=== PATIENT | female | born 1940 | race Caucasian/White ===

== ENCOUNTER 2018-06-16 02:26 | Inpatient (IN) | payer MEDICARE, BC ==
[~2018-06-16] VITALS: Ht 170.2 cm; Wt 57.7 kg
[~2018-06-16 02:26] MED LIST: AMBIEN5 MG ORAL; NKM
--- NOTE | 2018-06-16 02:39 | Emergency Room Report ---
History of Present Illness General Chief Complaint: Chest Pain Source: Patient Present Illness HPI This is a 77-year-old female with a history of asthma. She presents with chief complaint of chest pain. It woke her up from sleep. She complaining of chest pressure and heaviness to the mid chest area. Radiating to both shoulders and neck. Said that she felt short of breath and weak. Also was sweaty. This occurred about 40 minutes ago. She drove herself here. The bit better now. No nausea no vomiting. No fever or chills. Never had this problem before. Denies any recent illness. Said that she had a stress test done over one to 2 years ago. Allergies: Coded Allergies: CODEINE (Verified Allergy, Unknown, 12/31/14) Patient History Past Medical History: see triage record, old chart reviewed, asthma Past Surgical History: none Pertinent Family History: none Social History: Denies: smoking Now: No Immunizations: other Reviewed Nursing Documentation: PMH: Agreed; PSxH: Agreed Nursing Documentation-PMH Past Medical History: No Stated History Review of Systems Eye: Denies: eye pain, blurred vision ENT: Denies: ear pain, nose congestion, throat swelling Respiratory: Denies: cough, shortness of breath Cardiovascular: Reports: chest pain; Denies: palpitations Gastrointestinal: Denies: abdominal pain, diarrhea, nausea, vomiting Musculoskeletal: Denies: back pain, joint pain Skin: Denies: rash Neurological: Denies: headache, numbness Endocrine: Denies: increased thirst, increased urine Hematologic/Lymphatic: Denies: easy bruising All Other Systems: negative except mentioned in HPI Physical Exam Vital Signs Date Time Temp Pulse Resp B/P (MAP) Pulse Ox O2 Delivery O2 Flow Rate FiO2 06/16/18 02:18 98.4 68 16 155/78 100 Room Air vitals with high blood pressure Sp02 EP Interpretation: reviewed, normal General Appearance: well appearing, no apparent distress, alert Head: normocephalic, atraumatic Eyes: bilateral eye PERRL, bilateral eye EOMI ENT: hearing grossly normal, normal pharynx Neck: full range of motion, supple, no meningismus Respiratory: chest non-tender, lungs clear, normal breath sounds Cardiovascular #1: regular rate, rhythm, no murmur Gastrointestinal: normal bowel sounds, non tender, no mass, no organomegaly, no bruit, non-distended Musculoskeletal: back normal, gait/station normal, normal range of motion Psychiatric: mood/affect normal Skin: warm/dry Medical Decision Making Diagnostic Impression: Primary Impression: Chest pain Qualified Codes: R07.9 - Chest pain, unspecified ER Course Patient present with chest pain. Symptom only started less than an hour prior to arrival. First set of troponin negative. EKG normal. Because of her age, will race and telemetry observation for further workup and chest pain/GA rule out. I contacted Dr. Majano to place pt in Tele Obsv. EKG Diagnostic Results Rate: normal Rhythm: NSR ST Segments: no acute changes ASA given to the pt in ED: Yes Rhythm Strip Diag. Results EP Interpretation: yes Rate: 62 Rhythm: NSR, no PVC's, no ectopy Chest X-Ray Diagnostic Results Chest X-Ray Diagnostic Results : Chest X-Ray Ordered: Yes # of Views/Limited/Complete: 1 View Indication: Chest Pain EP Interpretation: Yes Interpretation: no consolidation, no effusion, no pneumothorax, no acute cardiopulmonary disease Impression: No acute disease Electronically Signed by: Ever Faustin MD Last Vital Signs Date Time Temp Pulse Resp B/P (MAP) Pulse Ox O2 Delivery O2 Flow Rate FiO2 06/16/18 02:18 98.4 68 16 155/78 100 Room Air Status: improved Disposition: PLACE IN OBSERVATION Condition: Serious Ever Faustin MD June 16, 2018 02:39
[2018-06-16] MEDS ORDERED: Aspirin Baby 81mg ORAL ONE (02:45)
[2018-06-16] MEDS ORDERED: Nitroglycerin Subl 0.4mg tab SL PRN (02:45)
[2018-06-16 02:53] VITALS: BP 155/78
[2018-06-16 03:04] LABS: APPEARANCE,URINE CLEAR; BASOPHILS % (AUTO) 1.9 % (0.0-2.0); BILIRUBIN, URINE NEGATIVE (NEGATIVE); COLOR,URINE PALE YELLOW; EOSINOPHILS % (AUTO) 2.1 % (0.0-3.0); GLUCOSE, URINE (UA) NEGATIVE (NEGATIVE); HEMATOCRIT 44.5 % (37.0-47.0); HEMOGLOBIN 14.5 G/DL (12.0-16.0); KETONES,URINE NEGATIVE (NEGATIVE); LEUKOCYTE ESTERASE ,URINE 1+ (NEGATIVE); LYMPHOCYTES % (AUTO) 32.9 % (20.0-45.0); MEAN CORPUSCULAR VOLUME 93 FL (80-99); MONOCYTES % (AUTO) 8.4 % (1.0-10.0); NEUTROPHILS % (AUTO) 54.8 % (45.0-75.0); NITRITE,URINE NEGATIVE (NEGATIVE); PH,URINE 7 (4.5-8.0); PLATELET COUNT 277 K/UL (150-450); PROTEIN,URINE NEGATIVE (NEGATIVE); RED BLOOD COUNT 4.81 M/UL (4.20-5.40); UROBILINOGEN,URINE NORMAL MG/DL (0.0-1.0); WHITE BLOOD COUNT 5.3 K/UL (4.8-10.8)
[2018-06-16 03:17] LABS: ANION GAP 6 mmol/L (5-15); BLOOD UREA NITROGEN 21 mg/dL (7-18); CALCIUM 9.6 MG/DL (8.5-10.1); CARBON DIOXIDE 31 MMOL/L (21-32); CHLORIDE 104 MMOL/L (98-107); CREATININE 0.8 MG/DL (0.55-1.30); POTASSIUM 3.5 MMOL/L (3.5-5.1); SODIUM 141 MMOL/L (136-145)
[2018-06-16 03:25] LABS: ALANINE AMINOTRANSFERASE 27 U/L (12-78); ALBUMIN 3.7 G/DL (3.4-5.0); ALKALINE PHOSPHATASE 84 U/L (46-116); ASPARTATE AMINO TRANSFERASE 27 U/L (15-37); BILIRUBIN,TOTAL 0.3 MG/DL (0.2-1.0); CKMB 2.6 NG/ML (0.0-3.6); CREATINE KINASE 291 U/L (26-308)
[2018-06-16 04:56] VITALS: BP 119/74
--- NOTE | 2018-06-16 06:42 | Cardiac Electrophysiology PN ---
Subjective Subjective [id number] Objective Last 24 Hour Vital Signs Date Time Temp Pulse Resp B/P (MAP) Pulse Ox O2 Delivery O2 Flow Rate FiO2 06/16/18 05:27 Room Air 06/16/18 04:56 98.3 74 17 119/74 100 Room Air 06/16/18 04:56 98.3 74 17 119/74 100 Room Air 06/16/18 02:53 68 16 Room Air 06/16/18 02:53 98.4 78 16 155/78 100 Room Air 06/16/18 02:46 155/78 06/16/18 02:18 98.4 68 16 155/78 100 Room Air Laboratory Tests Test 06/16/18 02:40 White Blood Count 5.3 K/UL (4.8-10.8) Red Blood Count 4.81 M/UL (4.20-5.40) Hemoglobin 14.5 G/DL (12.0-16.0) Hematocrit 44.5 % (37.0-47.0) Mean Corpuscular Volume 93 FL (80-99) Mean Corpuscular Hemoglobin 30.1 PG (27.0-31.0) Mean Corpuscular Hemoglobin Concent 32.5 G/DL (32.0-36.0) Red Cell Distribution Width 13.0 % (11.6-14.8) Platelet Count 277 K/UL (150-450) Mean Platelet Volume 6.4 FL (6.5-10.1) L Neutrophils (%) (Auto) 54.8 % (45.0-75.0) Lymphocytes (%) (Auto) 32.9 % (20.0-45.0) Monocytes (%) (Auto) 8.4 % (1.0-10.0) Eosinophils (%) (Auto) 2.1 % (0.0-3.0) Basophils (%) (Auto) 1.9 % (0.0-2.0) Urine Color Pale yellow Urine Appearance Clear Urine pH 7 (4.5-8.0) Urine Specific [place] 1.005 (1.005-1.035) Urine Protein Negative (NEGATIVE) Urine Glucose (UA) Negative (NEGATIVE) Urine Ketones Negative (NEGATIVE) Urine Blood Negative (NEGATIVE) Urine Nitrite Negative (NEGATIVE) Urine Bilirubin Negative (NEGATIVE) Urine Urobilinogen Normal MG/DL (0.0-1.0) Urine Leukocyte Esterase 1+ (NEGATIVE) H Urine RBC 0-2 /HPF (0 - 2) Urine WBC 0-2 /HPF (0 - 2) Urine Squamous Epithelial Cells Occasional /LPF Urine Bacteria Occasional /HPF (NONE) Sodium Level 141 MMOL/L (136-145) Potassium Level 3.5 MMOL/L (3.5-5.1) Chloride Level 104 MMOL/L (98-107) Carbon Dioxide Level 31 MMOL/L (21-32) Anion Gap 6 mmol/L (5-15) Blood Urea Nitrogen 21 mg/dL (7-18) H Creatinine 0.8 MG/DL (0.55-1.30) Estimat Glomerular Filtration Rate mL/min (>60) Glucose Level 124 MG/DL (74-106) H Calcium Level 9.6 MG/DL (8.5-10.1) Total Bilirubin 0.3 MG/DL (0.2-1.0) Aspartate Amino Transf (AST/SGOT) 27 U/L (15-37) Alanine Aminotransferase (ALT/SGPT) 27 U/L (12-78) Alkaline Phosphatase 84 U/L (46-116) Total Creatine Kinase 291 U/L (26-308) Creatine Kinase MB 2.6 NG/ML (0.0-3.6) Creatine Kinase MB Relative Index 0.8 Troponin I 0.000 ng/mL (0.000-0.056) Total Protein 7.3 G/DL (6.4-8.2) Albumin 3.7 G/DL (3.4-5.0) Globulin 3.6 g/dL Albumin/Globulin Ratio 1.0 (1.0-2.7) Travis Jacobs MD June 16, 2018 06:42
[2018-06-16] MEDS ORDERED: Lexiscan 0.4mg/5ml syringe IV SCH (07:00)
[2018-06-16 08:00] VITALS: BP 124/72
[2018-06-16] MEDS ORDERED: Lexiscan 0.4mg/5ml syringe IV PRN (08:00)
[2018-06-16] MEDS: Aspirin Baby 81mg ORAL SCH (09:27)
--- NOTE | 2018-06-16 11:36 | Diagnostic Imaging Report ---
Indication: Chest pain Technique: One view of the chest Comparison: 12/31/2014 Findings: Lungs and pleural spaces are clear. Heart size is normal. No significant interim change Impression: No acute process
[2018-06-16 12:00] VITALS: BP 122/67
--- NOTE | 2018-06-16 14:54 | Diagnostic Imaging Report ---
APPROVED REPORT CPT Code: 34410 Present Symptoms Comments: Pain BILATERAL: Imaging reveals a patent deep venous system bilaterally. There is no evidence of thrombus within the common femoral, superficial femoral, popliteal or tibial segments. The greater saphenous veins are within normal limits. Doppler indicates normal spontaneous flow within these segments.
--- NOTE | 2018-06-16 15:01 | Cardiology Report ---
APPROVED REPORT EXAM: Two-dimensional and M-mode echocardiogram with Doppler and color Doppler. INDICATION Chest Pain M-Mode DIMENSIONS IVSd1.3 (0.7-1.1cm)Left Atrium (MM)1.9 (1.6-4.0cm) LVDd4.8 (3.5-5.6cm)Aortic Root3.6 (2.0-3.7cm) PWd0.7 (0.7-1.1cm)Aortic Cusp Exc.1.8 (1.5-2.0cm) IVSs1.4 cm LVDs3.0 (2.5-4.0cm) PWs1.2 cm Technically difficult study due to poor acoustical windows. Normal left ventricular chamber size, systolic function and wall motion to extent visualized. Left ventricular ejection fraction estimated to be 55-60 %. Borderline mild left ventricular hypertrophy. No evidence of pericardial effusion. All other cardiac chamber sizes are within normal limits. Focal aortic valve sclerosis with adequate cusp excursion. Thickened mitral valve leaflets with normal excursion. Mitral annulus and aortic root calcification. Pulmonic valve not well visualized. Normal tricuspid valve structure. IVC at normal size with slight physiologic collapse. A color flow and spectral Doppler study was performed and revealed: Trace mitral regurgitation. Mitral diastolic velocities suggest reduced left ventricular relaxation c/w mild LV diastolic dysfunction (Grade I). Trace to mild tricuspid regurgitation. Tricuspid systolic velocities suggests peak right ventricular systolic pressure of 25 mmHg.
[2018-06-16 16:00] VITALS: BP 120/54
--- NOTE | 2018-06-16 16:27 | Diagnostic Imaging Report ---
Indications: Chest pain Technique: Single day single isotope protocol utilized. Initially, resting images obtained using IV administration 10 millicuries 99M technetium Myoview. Subsequently, patient underwent Dobutamine stress testing. See cardiology report for details. During adenosine infusion, IV administration 30.6 mCi 99 M technetium Myoview. SPECT and planar images obtained. SPECT images gated to 8 phases of the cardiac cycle were also obtained, and reformatted into cine images for evaluation of ejection fraction. Comparison: none Findings: Presence or absence of symptoms during infusion is not described in the cardiology report. Per cardiology report, resting EKG demonstrates normal sinus rhythm. Presence or absence of ST changes is not described on the cardiology report. Cardiology report, patient achieved a peak heart rate 140 bpm, excess of the target heart rate one 23 bpm. Imaging demonstrates normal poststress perfusion, no fixed nor reversible perfusion defects. Normal cardiac chamber size. Calculated post stress ejection fraction 72% Impression: Nonischemic clinical response to pharmacologic stress, per cardiology report Nonischemic electrocardiographic response to pharmacologic stress, per cardiology report No imaging findings to suggest ischemia, at level of stress achieved. Calculated post stress ejection fraction 72%
--- NOTE | 2018-06-16 17:15 | Consultation ---
DATE OF CONSULTATION: 06/16/2018 CARDIOLOGY CONSULTATION CONSULTING PHYSICIAN: Travis Jacobs M.D. REASON FOR CONSULTATION: Chest pain. HISTORY OF PRESENT ILLNESS: The patient is a very pleasant 77-year-old lady with history of asthma and history of chest pains in the past for which she has been evaluated by Dr. Bassem Reynolds. She sees acid maker and had undergone a stress test per her in the last year that reportedly was completely normal. The patient presented to the emergency room complaining of chest pain that woke her up from sleep. It was pressure like and heaviness in the middle of the chest with radiation to both shoulders and back. The pain also radiated to her left arm. The patient was very diaphoretic. She came to the emergency room and EKG did not show any ischemic changes. First troponin was negative. Cardiology consultation was obtained for further evaluation and management. REVIEW OF SYSTEMS: Negative other than what was mentioned in history of present illness. PAST MEDICAL HISTORY: As above. FAMILY HISTORY: Noncontributory. MEDICATIONS: At home, just multivitamin. PHYSICAL EXAMINATION: VITAL SIGNS: Show blood pressure of 155/78, pulse 78, respirations 18, temperature 98.4. HEAD AND NECK: No JVD. LUNGS: Clear. CARDIOVASCULAR: Regular S1 and S2 with no gallop or murmur. ABDOMEN: Soft. EXTREMITIES: No pitting edema. LABORATORY AND DIAGNOSTIC DATA: Her EKG shows sinus rhythm with no acute ischemic changes. Labs show white count of 5.2, hemoglobin of 14.5, hematocrit 44.5, platelet count of 277,000. Sodium 141, potassium 3.5, BUN of 21, creatinine 0.8, and glucose of 124. The troponin was negative. ASSESSMENT AND PLAN: 1. Chest pain at rest. The patient states she regularly without any chest pain and the stress test last year was reportedly negative. We will completely rule out AK protocol, repeat EKG, and get an echocardiogram to evaluate for ejection fraction and wall motion abnormality and schedule the patient for a stress test. 2. History of asthma, currently stable. Thank you very much, Dr. Majano, for allowing me to participate in the care of this patient. Please do not hesitate to contact me for any questions regarding my evaluation. Travis Jacobs M.D. DR: VASILIY JOB#: [id number] CC:
[2018-06-16 20:00] VITALS: BP 118/71
[2018-06-17] VITALS: BP 121/68
[2018-06-17 04:00] VITALS: BP 95/54
[2018-06-17 08:00] VITALS: BP 123/72
[2018-06-17] MEDS: Aspirin Baby 81mg ORAL SCH (08:49)
[2018-06-17 12:00] VITALS: BP 133/55
--- NOTE | 2018-06-17 14:15 | History and Physical Report ---
DATE OF ADMISSION: 06/16/2018 HISTORY OF PRESENT ILLNESS: The patient comes in with chest pain that woke her up associated with diaphoresis and radiated to both arms. The patient has tremor every day, but however, she states recently she has been doing due to her asthma and shortness of breath. The patient has history of asthma and was admitted for the chest pain, rule out acute coronary syndrome. The patient has no history of heart disease. Denies shortness of breath . Denies wheezing. Denies cough headache. PAST MEDICAL HISTORY: Significant for asthma. PAST SURGERIES: left foot surgery. SOCIAL HISTORY: History of smoking . ALLERGIES: NSAID. MEDICATIONS: FAMILY HISTORY: Noncontributory. REVIEW OF SYSTEMS: HEENT: headaches. RESPIRATORY: Denies shortness of breath. Denies cough. CARDIOVASCULAR: Reports chest pain radiated to both arms associated with diaphoresis. GASTROINTESTINAL: Denies nausea, vomiting, or diarrhea. EXTREMITIES: Denies any significant pain. NEUROLOGIC: No change in vision or speech pattern. PHYSICAL EXAMINATION: VITAL SIGNS: Temperature is 98.3, pulse is 74, blood pressure 119/74. HEENT: PERRLA. NECK: Supple. CHEST: Clear to auscultation. CARDIOVASCULAR: Regular rate and rhythm. No murmurs or extra sounds. GASTROINTESTINAL: Soft, nontender, and nondistended. No organomegaly. EXTREMITIES: No edema. Moves all four extremities. NEUROLOGIC: Sensory is intact to light touch. LABORATORY DATA: WBC of 5.3, hemoglobin 14.5, and platelets 277. Sodium 141, potassium 3.5, BUN of 21, creatinine 0.8, glucose 124. Troponin negative. . ASSESSMENT AND PLAN: Chest pain, rule out acute coronary syndrome. The patient changes. No prior history of [place]. I have asked Dr. Ayers to see the patient to rule out for acute coronary syndrome as well as low potassium and elevated BUN. Peggy Majano M.D. DR: Abbie JOB#: [id number] CC:
--- NOTE | 2018-06-17 14:17 | Cardiology Report ---
APPROVED REPORT EKG Measurement Heart [id number] Sinus bradycardia Otherwise normal ECG
--- NOTE | 2018-06-17 15:49 | Cardiac Electrophysiology PN ---
Assessment/Plan Assessment/Plan 1. Chest pain at rest. Ruled out for ID. Echocardiogram showed Nl EF.Nuclear stress test showed no ischemia. 2. History of asthma, currently stable. DW RN OK to DC Subjective Subjective No CP or SOB. EF 72%. Stress test was done yesterday that showed no ischemia Objective Last 24 Hour Vital Signs Date Time Temp Pulse Resp B/P (MAP) Pulse Ox O2 Delivery O2 Flow Rate FiO2 06/17/18 12:00 98.1 63 16 133/55 (81) 98 06/17/18 11:35 78 06/17/18 09:00 Room Air 06/17/18 08:00 66 06/17/18 08:00 98.2 62 16 123/72 (89) 97 06/17/18 04:00 98.0 63 20 95/54 (68) 97 06/17/18 04:00 87 06/17/18 00:00 67 06/17/18 00:00 97.3 66 18 121/68 (85) 97 06/16/18 21:00 Room Air 06/16/18 20:00 98.2 67 16 118/71 (87) 97 06/16/18 20:00 68 06/16/18 16:00 98.1 87 120/54 (76) 06/16/18 16:00 73 Intake and Output 06/16/18 06/17/18 18:59 06:59 Intake Total 900 ml 900 ml Output Total 700 ml 700 ml Balance 200 ml 200 ml Intake Oral 900 ml 900 ml Output Urine Total 700 ml 700 ml # Voids 1 Laboratory Tests Test 06/16/18 19:15 06/17/18 03:00 Troponin I 0.000 ng/mL (0.000-0.056) 0.000 ng/mL (0.000-0.056) Objective HEAD AND NECK: No JVD. LUNGS: Clear. CARDIOVASCULAR: Regular S1 and S2 with no gallop or murmur. ABDOMEN: Soft. EXTREMITIES: No pitting edema. Travis Jacobs MD June 17, 2018 15:49
[2018-06-17 16:00] VITALS: BP 129/68
--- NOTE | 2018-06-17 19:27 | Physician Query ---
--------- THIS DOCUMENT IS A PERMANENT PART OF THE MEDICAL RECORD --------- PLEASE COMPLETE THE DOCUMENT BEFORE SIGNING Acct#[id number] Pt Name: JOVANI ABEBE Dear Dr. Sheikh, Peggy Date Wraparound Facilitator/CDS' Name _Paige Wraparound Facilitator/CDS Phone#: Exercise your independent professional judgment when responding to query. Questions asked do not imply particular answer is desired or expected. We greatly appreciate your clarification on this issue. Clinical Documentation States: The patient comes in with chest pain, Physical exam: CARDIOVASCULAR: Reports chest pain radiated to both arms associated with diaphoresis. Regular rate and rhythm. No murmurs or extra sounds. Cardio cons: 1. Chest pain at rest. Ruled out for AK. Echocardiogram showed Nl EF.Nuclear stress test showed no ischemia VITAL SIGNS: Temperature is 98.3, pulse is 74, blood pressure 119/74. Clinical Findings Show: EKG = ED provider reading: normal Rhythm: NSR ST Segments: no acute changes Troponin = __0.000 O2% = _98-92 ECHO = _06/17/18 EF = __70% Please document the suspected etiology of Chest Pain: a.Type: []Cardiac []Non-cardiac []Unspecified b.Etiology - cardiac [] Aortic dissection []Mitral valve prolapsed [] Acute myocardial infarction []Spasm of coronary arteries [] Coronary Artery Disease []Pericarditis c.Etiology - non-cardiac [] Anxiety []Pleurisy [] Cancer []Pneumonia, type [] Costochondritis []Pneumothorax [] GERD/Esophagitis []Pulmonary embolism [] Unable to determine []Other: Condition Present on Admission: [] Yes [] No []Clinically Undeterminable Please also document in your Progress Notes and/or Discharge Summary and indicate if the condition was present on admission.
--- NOTE | 2018-06-18 07:22 | Discharge Summary ---
Discharge Summary Discharge Summary _ STILL IN DRAFT, AWAITING MD RESPONSE TO QUERY DATE OF ADMISSION: 06/16/2018 DATE OF DISCHARGE: 06/17/2018 DISCHARGED BY: Dr. Peggy Judge CONSULTANTS: Dr. Travis Jacobs BRIEF HOSPITAL COURSE: Patient is a 77-year-old female, who presented to ED with chief complaint of chest pain. Pain woke her up from sleep. She complained of chest pressure and heaviness to the mid chest area, radiating to both shoulders and neck. She was short of breath and felt weak and sweaty. Symptoms started 40 minutes prior to arrival to ED. She denied any nausea or vomiting. No fever or chills. She denies any recent illness. She had a stress test done over 2 years ago. She has medical history significant for asthma. On evaluation at the ED, blood pressure was 155/78, pulse rate 68. Blood work did not show any leukocytosis. Hemoglobin and hematocrit were stable. Initial troponin was negative. EKG was in normal sinus rhythm with no acute changes. Because of her age, race and risk factors, patient was admitted to telemetry for further work-up. Patient underwent cardiac evaluation. Cardiac enzymes were monitored. Venous duplex of the lower extremity was negative for acute DVT. Echocardiogram done showed showed ejection fraction 55 to 60%, trace mitral regurgitation, right ventricular systolic pressure of 25 mmHg. She was given aspirin. Stress test did not show any ischemia. Due to rapid improvement in patient's symptoms and negative work-up, patient was discharged the following day. FINAL DIAGNOSES: Chest pain History of asthma DISPOSITION: Patient was discharged home. DISCHARGE MEDICATIONS: Refer to Discharge Medication List. DISCHARGE INSTRUCTIONS: Follow-up in a week. I have been assigned to complete a discharge summary on this account, I was not involved with the patient's management. Rubia White NP June 18, 2018 07:22
== END 2018-06-17 16:44 | disposition home or self-care (01) | DRG 313 ==
LOC: EDBD 02:26 → EMR 02:30 → EDBEDREQ 03:42 → 2E 03:44 → OBSVTOIN 03:44 → EDBEDREQ 04:15 → 2E 04:39
DX: R07.89 Other chest pain (principal); Z88.6 Allergy status to analgesic agent; Z87.891 Personal history of nicotine dependence; J45.909 Unspecified asthma, uncomplicated
CPT/HCPCS: 36415; 71045; 78452; 80053; 81003; 82550; 82553; 84484; 85025; 93005; 93017; 93306; 93970; 99285; J2785